=== PATIENT | male | born 1955 | race African-American/Black ===

== ENCOUNTER 2018-09-19 07:22 | Inpatient (IN) | payer OTHER ==
--- NOTE | 2018-08-20 21:51 | Pre-Procedure Note/Attestation ---
Pre-Procedure Note/Attestation Complete Prior to Procedure Planned Procedure: left Procedure Narrative: Open biopsy of lef tumor on jaw and radiofrequency ablation of tumor left jaw. 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 Attestation I attest that I discussed the nature of the procedure; its benefits; risks and complications; and alternatives (and the risks and benefits of such alternatives ), prior to the procedure, with the patient (or the patient's legal airline security representative). I attest that, if there was a reasonable possibility of needing a blood transfusion, the patient (or the patient's legal airline security representative) was given the [facility] standardized written summary, pursuant to the [place] Blood Safety Act ([place] Health and Safety Code # 1645, as amended). I attest that I re-evaluated the patient just prior to the surgery and that there has been no change in the patient's H&P,as attached and done by his PMD and will be cosigned by me. Elmo Gray MD Aug 20, 2018 21:51
--- NOTE | 2018-08-20 21:58 | Brief Operative Note ---
Immediate Post Operative Note Operative Note Chief Complaint: Recurrent left parotid tumor S/P multiple surgeries elsewhere. 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 Procedure: Left face/jaw tumor open biopsy and radiofrequency ablation. Post-op Diagnosis: same as pre-op Surgeon: Elmo Gray MD Traffic Checker: none Additional Surgeons: none Anesthesia: MAC Specimen: yes - Sent to [facility] for special cancer DNA testing. Fluids: D5LR Estimated Blood Loss: minimal Drains: none Packing: none Implant(s) used?: No Elmo Gray MD Aug 20, 2018 21:58
--- NOTE | 2018-08-20 22:02 | Discharge Instructions ---
Discharge Instructions Discharge Instructions Follow up with: Dr. Gray next week Diet: regular Resume Normal Activity?: No Activity: light activity Pneumonia Vaccine: pt refused vaccine Influenza Vaccine (Feb to Jul): pt refused vaccine Follow Up Orders pt has printed instructions re post op care which we reviewed at his pre op appt last week and were given to him. Return to Work/School on: Sep 04, 2018 For Congestive Heart Failure Reminder Report to your physician any weight gain of 5 pounds or more in one week. Elmo Gray MD Aug 20, 2018 22:02
--- NOTE | 2018-08-20 22:16 | History & Physical ---
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 Also has had XRT in the past, which did not work. Now on face and to base of skull. Bx to see if a CA and would benefit from Chemotherapy. Allergies: Coded Allergies: No Known Allergies (Unverified , 08/20/18) Medication History Scheduled PRN Hydrocodone Bit/Acetaminophen 5-325* ([place] 5-325*), 1 TAB ORAL Q6HR PRN, ( Reported) Miscellaneous Medications Cephalexin* (Keflex*), 500 MG ORAL, (Reported) Patient History History Provided By: Patient Healthcare decision maker patient himself Resuscitation status Full code Advanced Directive on File Patient History Narrative as above for face. Also; Cardiomegaly, Haque's aplsy Review of Systems Review of Symptoms General ROS: no weight loss or fever Psychological ROS: no depression or mood changes, no memory loss Ophthalmic ROS: no visual changes or eye irritation ENT ROS: no nasal congestion, hearing loss, dizziness. +LEFT FACIAL PARALYSIS, TUMOR ON LEFT FACE AND BASE OF SKULL ON LEFT. Allergy and Immunology ROS: no allergic symptoms or urticaria Hematological and Lymphatic ROS: no swollen glands, unusual bleeding or bruising Endocrine ROS: no polyuria, polydipsia, weight changes, temperature intolerance Respiratory ROS: no cough, shortness of breath, or wheezing Cardiovascular ROS: Cardiomegaly Gastrointestinal ROS: denies abdominal pain, bright red blood in stool. Musculoskeletal ROS: no myalgias or arthralgias Neurological ROS: no TIA or stroke symptoms Dermatological ROS: no new or changing skin lesions, rashes or pruritis Physical Exam Physical Exam General appearance: alert, cooperative, no distress, appears stated age Head: Normocephalic, without obvious abnormality, atraumatic Eyes: conjunctivae/corneas clear. PERRL, EOM's intact. Fundi benign Throat: Lips, mucosa, and tongue normal. Teeth and gums normal Neck: supple, symmetrical, trachea midline, no adenopathy, thyroid: not enlarged, symmetric, no tenderness/mass/nodules, no carotid bruit and no JVD Lungs: clear to auscultation bilaterally Heart: regular rate and rhythm, S1, S2 normal, no murmur, click, rub or gallop Abdomen: soft, non-tender. Bowel sounds normal. No masses, no organomegaly Extremities: extremities normal, atraumatic, no cyanosis or edema Pulses: 2+ and symmetric Skin: Skin color, texture, turgor normal. No rashes or lesions Neurologic: Grossly normal STABLE NA see PMD records sent including CBC< SMA 6, EXG, CXR and medical clearance. Height (Feet): 5 Height (Inches): 11 Weight (Pounds): 204 Medications Spironlactome, Losartan, Potassium Objective Narrative Left facial tumor and facial paralysisn Assessment/Plan Status: stable [facility] Hospital declaration INPATIENT level of care is warranted for this patient because patient is a 89 year old with who presents with suspicion of . I have a high level of concern because . Patient is at high risk for . Plan of care/treatment include . Patient care is expected to be greater than 2 midnights. OBSERVATION level of care is warranted for this patient. Patient is a 89 year old with who presents with . Patient will be admitted for 1 midnight, but if additional night(s) is/are necessary, patient will be converted to inpatient status for the entire hospitalization Disposition: Once the patient is stable to leave the hospital, I anticipate the patient will likely be discharged to the following environment: Estimated discharge date: I spent 70 minutes on this patient's case, and minutes was dedicated to counseling and/or care coordination. MIPS (Merit-based Incentive Payment System) Applicable CPT: 92558, 46167 CHECK ALL THAT ARE MET: Measure #5 (CHF): All ages. Prescribe CONSTANTINE/ARB upon discharge for patients with left ventricular systolic dysfunction. If not, the reason is clearly documented in the medical chart. Measure #8 (CHF): All ages. Prescribe a beta kulwant upon discharge for patients with left ventricular systolic dysfunction. If not, the reason is clearly documented in the medical chart. Measure #47 Advance care plan or surrogate decision maker documented in the medical record. Measure #130 The provider has documented, updated, or reviewed the patients current medication list and has documented it in the patients note. Measure #374 (All): Send report to referring provider. Measure #407(Sepsis due to MSSA bacteremia): Age 18+ Patient treated with a beta-lactam antibiotic (Nafcillin, Oxacillin or Cefazolin) as definitive therapy. MEDICAL COMPLEXITY High complexity medical decision making (need 2/3 categories) Problem - need 4 points Acute/new problem with new plan for workup (4 points, 1 max) Acute/new problem without additional workup (3 points, 1 max) Unstable chronic problem actively being managed (2 point each, 2 max) Stable chronic problem actively being managed (1 point each, 2 max) Self-limited/transient process (constipation, muscle ache, etc) (1 point each , 2 max) Data - need 4 points Reviewed labs/imaging studies (1 points, 2 max) Independent review of imaging (EKG, xrays, etc) (2 points, 2 max) Discussed case with consult/other MD/RN (2 points, 2 max) High Risk - qualify if have one of the following: Severe exacerbation of acute problem, acute mental status change, IV narcotics , monitoring drug levels (vancomycin, INR, tacrolimus etc) Elmo Gray MD Aug 20, 2018 22:16
--- NOTE | 2018-09-18 19:48 | History & Physical ---
History and Physical History & Physicial [facility] History and Physical Patient Name: Filiberto Rodriguez Unit Number: [id number] Date of : 1955 Patient Status: Pre-registered Surgical Day Care Attending Doctor: Elmo Gray MD HPI History of Present Illness General Date patient seen: Aug 09, 2018 Time patient seen: 11:15 Reason for Hospitalization: out[t surgery for open bx fo left face/jaw tumor Present Illness HPI Nuerous left facial surgeries elsewhere for pleomophic adenoma which has recurred many times and has had a reanimation surgery as well, which did not work well. Also has had XRT in the past, which did not work. Now on face and to base of skull. Bx to see if a CA and would benefit from Chemotherapy. Allergies: Coded Allergies: No Known Allergies (Unverified , 08/20/18) Medication History Scheduled PRN Hydrocodone Bit/Acetaminophen 5-325* ([place] 5-325*), 1 TAB ORAL Q6HR PRN, ( Reported) Miscellaneous Medications Cephalexin* (Keflex*), 500 MG ORAL, (Reported) Patient History History Provided By: Patient Healthcare decision maker patient himself Resuscitation status Full code Advanced Directive on File Patient History Narrative as above for face. Also; Cardiomegaly, Haque's aplsy Review of Systems Review of Systems Review of Symptoms General ROS: no weight loss or fever Psychological ROS: no depression or mood changes, no memory loss Ophthalmic ROS: no visual changes or eye irritation ENT ROS: no nasal congestion, hearing loss, dizziness. +LEFT FACIAL PARALYSIS, TUMOR ON LEFT FACE AND BASE OF SKULL ON LEFT. Allergy and Immunology ROS: no allergic symptoms or urticaria Hematological and Lymphatic ROS: no swollen glands, unusual bleeding or bruising Endocrine ROS: no polyuria, polydipsia, weight changes, temperature intolerance Respiratory ROS: no cough, shortness of breath, or wheezing Cardiovascular ROS: Cardiomegaly Gastrointestinal ROS: denies abdominal pain, bright red blood in stool. Musculoskeletal ROS: no myalgias or arthralgias Neurological ROS: no TIA or stroke symptoms Dermatological ROS: no new or changing skin lesions, rashes or pruritis Physical Exam Physical Exam Physical Exam General appearance: alert, cooperative, no distress, appears stated age Head: Normocephalic, without obvious abnormality, atraumatic Eyes: conjunctivae/corneas clear. PERRL, EOM's intact. Fundi benign Throat: Lips, mucosa, and tongue normal. Teeth and gums normal Neck: supple, symmetrical, trachea midline, no adenopathy, thyroid: not enlarged, symmetric, no tenderness/mass/nodules, no carotid bruit and no JVD Lungs: clear to auscultation bilaterally Heart: regular rate and rhythm, S1, S2 normal, no murmur, click, rub or gallop Abdomen: soft, non-tender. Bowel sounds normal. No masses, no organomegaly Extremities: extremities normal, atraumatic, no cyanosis or edema Pulses: 2+ and symmetric Skin: Skin color, texture, turgor normal. No rashes or lesions Neurologic: Grossly normal STABLE NA see PMD records sent including CBC< SMA 6, EXG, CXR and medical clearance. Height (Feet): 5 Height (Inches): 11 Weight (Pounds): 204 Medications Spironlactome, Losartan, Potassium Objective Narrative Left facial tumor and facial paralysisn Assessment/Plan Assessment/Plan Status: stable [facility] Hospital declaration INPATIENT level of care is warranted for this patient because patient is a 63 year old who presents with suspicion of cancer parotid gland. I have a high level of concern because of recurrence. Plan of care/treatment include open biopsy. Patient care is expected to be an outpt. Disposition: Once the patient is stable to leave the hospital, I anticipate the patient will likely be discharged to home with a friend of family member. Estimated discharge date: I spent 70 minutes on this patient's case, and 50 minutes was dedicated to counseling and/or care coordination. MIPS (Merit-based Incentive Payment System) Applicable CPT: 47518, 08033 CHECK ALL THAT ARE MET: Measure #8 (CHF): All ages. Prescribe a beta kulwant upon discharge for patients with left ventricular systolic dysfunction. If not, the reason is clearly documented in the medical chart. Measure #130 The provider has documented, updated, or reviewed the patients current medication list and has documented it in the patients note. MEDICAL COMPLEXITY High complexity medical decision making (need 2/3 categories) Problem - need 4 points Acute/new problem with new plan for workup (4 points, 1 max) Acute/new problem without additional workup (3 points, 1 max) Unstable chronic problem actively being managed (2 point each, 2 max) Stable chronic problem actively being managed (1 point each, 2 max) Self-limited/transient process (constipation, muscle ache, etc) (1 point each , 2 max) Data - need 4 points Reviewed labs/imaging studies (1 points, 2 max) Independent review of imaging (EKG, xrays, etc) (2 points, 2 max) Discussed case with consult/other MD/RN (2 points, 2 max) High Risk - qualify if have one of the following: Severe exacerbation of acute problem, acute mental status change, IV narcotics , monitoring drug levels (vancomycin, INR, tacrolimus etc) Elmo Gray MD Aug 20, 2018 22:16 Elmo Gray MD September 18, 2018 19:48
[2018-09-19] VITALS (15 sets, daily range): BP systolic 102–141; BP diastolic 61–97
[~2018-09-19] VITALS: Ht 182.9 cm; Wt 88.5 kg
[~2018-09-19 07:22] MED LIST: AUGMENTIN 875-1 EAC1 ORAL; CARVEDILOL6.25 MG ORAL; CEPHALEXIN500 MG ORAL; LOSARTAN POTASS25 MG ORAL; NORCO 5-325 TA1 EACH ORAL
--- NOTE | 2018-09-19 07:56 | Anethesia Preoperative Eval ---
Anesthesia Pre-op PMH/ROS General Date of Evaluation: September 19, 2018 Anesthesiologist: Chris ASA Score: ASA 3 Mallampati Score Class I : Soft palate, uvula, fauces, pillars visible Class II: Soft palate, uvula, fauces visible Class III: Soft palate, base of uvula visible Class IV: Only hard plate visible Mallampati Classification: Class III Surgeon: Marina Diagnosis: Left parotid tumor Surgical Procedure: Left parotid gland tumor biopsy and radiofrequency ablation Anesthesia History: none Family History: no anesthesia problems Allergies: Coded Allergies: No Known Allergies (Unverified , 08/20/18) Medications: see eMAR Patient NPO?: Yes NPO Date: September 18, 2018 NPO Time: 22:00 Past Medical History Cardiovascular: Reports: HTN, other - CHF-EF 15-20%, refusing AICD, nonischemic cardiomyopathy; Denies: CAD, MT, valve dz, arrhythmia Pulmonary: Denies: asthma, COPD, AMARJIT, other Gastrointestinal/Genitourinary: Reports: CRI; Denies: GERD, ESRD, other Neurologic/Psychiatric: Reports: depression/anxiety; Denies: dementia, CVA, TIA, other Endocrine: Denies: DM, hypothyroidism, steroids, other HEENT: Reports: other - parotid tumor; Denies: cataract (L), cataract (R), glaucoma, TORRES MARTINEZ (L), TORRES MARTINEZ (R) Hematology/Immune: Denies: anemia, DVT, bleeding disorder, other Musculoskeletal/Integumentary: Denies: OA, RA, DJD, DDD, edema, other Other: obesity PSxH Narrative: Left parotid sx X 9 Anesthesia Pre-op Phys. Exam Physician Exam see chart Constitutional: NAD, other - left facial paralysis Cardiovascular: RRR Respiratory: CTA Airway Exam Mallampati Score: Class III - deviated palate secondary to large parotid tumor MO: limited ROM: limited Teeth: intact Anesthesia Pre-op A/P Labs see chart Studies Pre-op Studies: EKG - nsr with LAD, PVCs, delayed intraventricular conduction, echo - EF 15-20%, mod LVE, mild AI, mild-mod MR, mild TR, mod LAE, mild MONSERRAT Risk Assessment & Plan Assessment: ASA III critically ill patient with EF of 15-20 % and nonischemic cardiomyopathy. Refusing AICD. Airway Mallampati III with deviated palate and posterior oropharynx secondary to large parotid tumor that extends into the skull. Surgery changed to biopsy of parotid gland tumor with radiofrequency ablation under local anesthesia with anesthesiologist on standby. Plan: GA Status Change Before Surgery: No Pre-Antibiotics Drug: Ancef 2g Given Within 1 Hr of Incision: Yes Lulú Hernandez MD September 19, 2018 07:56
--- NOTE | 2018-09-19 07:57 | Brief Operative Note ---
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 Procedure: Left face/jaw tumor open biopsy and radiofrequency ablation. Post-op Diagnosis: same as pre-op Surgeon: Elmo Gray Or Nurse Manager: none Additional Surgeons: none Anesthesiologist: Chris Anesthesia: general Specimen: yes Complications: none Condition: stable Fluids: D5LR Estimated Blood Loss: volume - 150 cc Drains: antwan Packing: none Implant(s) used?: No Elmo Gray MD September 19, 2018 07:57
[2018-09-19] MEDS ORDERED: LR 1000ml 1,000 ML IVLG SCH (08:21)
[2018-09-19] MEDS ORDERED: LORazepam Inj 2mg/ml 1ml IV PRN ×2 (08:30→12:30)
[2018-09-19] MEDS ORDERED: DiphenhydrAMINE 50mg/ml Inj IVP PRN (08:30)
[2018-09-19] MEDS ORDERED: fentaNYL 100 mcg/2 mL IV PRN (08:30)
[2018-09-19] MEDS ORDERED: Hydromorphone 0.5mg/0.5ml inj IVP PRN (08:30)
[2018-09-19] MEDS ORDERED: Metoclopramide 10mg/2ml Inj IVP PRN (08:30)
[2018-09-19] MEDS ORDERED: Midazolam 2mg/2ml Inj IVP PRN (08:30)
[2018-09-19] MEDS ORDERED: EPINEPHrine 1mg/1ml Amp ONE (09:16)
[2018-09-19] MEDS ORDERED: Lidocaine 1% 10mg/ml/Epi 0.005mg/ml 30ml vial INJ ONE (09:16)
[2018-09-19] MEDS ORDERED: Bupivacaine w/Epi 0.5% 30ml Vial INJ ONE (09:16)
[2018-09-19] MEDS ORDERED: Bacitracin Oint 15gm Tube TOPIC ONE (09:16)
[2018-09-19] MEDS ORDERED: LR 1000ml ONE (09:21)
[2018-09-19] MEDS ORDERED: Lidocaine 1% MPF 10mg/ml 5ml ONE (09:21)
--- NOTE | 2018-09-19 09:23 | Pre-Procedure Note/Attestation ---
Pre-Procedure Note/Attestation Complete Prior to Procedure Planned Procedure: left Procedure Narrative: Open biopsy of left jaw tumor with radiofrequency ablation. 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 Attestation I attest that I discussed the nature of the procedure; its benefits; risks and complications; and alternatives (and the risks and benefits of such alternatives ), prior to the procedure, with the patient (or the patient's legal safety representative). I attest that, if there was a reasonable possibility of needing a blood transfusion, the patient (or the patient's legal safety representative) was given the [facility] standardized written summary, pursuant to the [place] Blood Safety Act ([place] Health and Safety Code # 1645, as amended). I attest that I re-evaluated the patient just prior to the surgery and that there has been no change in the patient's H&P. Elmo Gray MD September 19, 2018 09:23
--- NOTE | 2018-09-19 09:26 | Discharge Instructions ---
Discharge Instructions Discharge Instructions Follow up with: Dr. Gray's office 09/21/18 10 AM Diet: regular Resume Normal Activity?: No Activity: light activity Pneumonia Vaccine: pt refused vaccine Influenza Vaccine (Feb to Jul): pt refused vaccine Return to Work/School on: September 26, 2018 For Surgical Patients Dressing Care: keep dry and clean September shower: Yes For Congestive Heart Failure Reminder Report to your physician any weight gain of 5 pounds or more in one week. Elmo Gray MD September 19, 2018 09:26
--- NOTE | 2018-09-19 10:54 | Immediate Post-Op Evaluation ---
Immediate Post-Op Evalulation Immediate Post-Op Evalulation Procedure: Biopsy left parotid gland tumor and radiofrequency ablation Date of Evaluation: September 19, 2018 Time of Evaluation: 10:55 IV Fluids: 200 Blood Products: 0 Estimated Blood Loss: 150 Urinary Output: 0 Blood Pressure Systolic: 141 Blood Pressure Diastolic: 97 Pulse Rate: 69 Respiratory Rate: 16 O2 Sat by Pulse Oximetry: 96 Temperature (Fahrenheit): 97 Pain Score (1-10): 0 Nausea: No Vomiting: No Complications 0 Patient Status: awake, reacts, patent, none Hydration Status: adequate Drug: Ancef 2g Given Within 1 Hr of Incision: Yes Lulú Hernandez MD September 19, 2018 10:54
[2018-09-19] MEDS ORDERED: Morphine Sulfate 2mg/ml Inj(IV/IM USE ONLY) IVP PRN (12:30)
[2018-09-19] MEDS ORDERED: Zolpidem 5mg tab ORAL PRN (12:30)
[2018-09-19] MEDS ORDERED: Miralax 17gm pkt ORAL PRN (12:30)
--- NOTE | 2018-09-19 12:40 | History and Physical ---
History of Present Illness General Date patient seen: September 19, 2018 Present Illness HPI 63 year old male with hx of HTN, Cardiomyopathy, head and neck tumor since 1986 with total of 9 surgeries, admitted after biopsy of parotid mass. Allergies: Coded Allergies: No Known Allergies (Unverified , 08/20/18) Medication History Scheduled Amoxicillin/Potassium Clav 875-125* (Augmentin 875-125 Tablet*), 1 TAB ORAL TWICE A DAY, (Reported) Carvedilol* (Carvedilol*), 6.25 MG ORAL EVERY 12 HOURS, (Reported) Losartan Potassium* (Losartan Potassium*), 25 MG ORAL DAILY, (Reported) Scheduled PRN Hydrocodone Bit/Acetaminophen 5-325* ([place] 5-325*), 1 TAB ORAL Q6HR PRN, ( Reported) Miscellaneous Medications Cephalexin* (Keflex*), 500 MG ORAL, (Reported) Patient History Healthcare decision maker Resuscitation status Advanced Directive on File Past Medical/Surgical History Past Medical/Surgical History: (1) History of hypertension (2) Chronic systolic (congestive) heart failure Review of Systems All Other Systems: negative except mentioned in HPI Physical Exam General Appearance: WD/WN Lines, tubes and drains: peripheral, central line HEENT: normocephalic, atraumatic Neck: non-tender, normal alignment Respiratory/Chest: chest wall non-tender, lungs clear Breasts: no masses Cardiovascular/Chest: normal rate Abdomen: normal bowel sounds Genitourinary/Rectal: normal genital exam Extremities: normal range of motion Last 24 Hour Vital Signs Date Time Temp Pulse Resp B/P (MAP) Pulse Ox O2 Delivery O2 Flow Rate FiO2 09/19/18 11:55 97.2 68 18 125/86 96 Room Air 09/19/18 11:40 71 19 122/84 97 Room Air 09/19/18 11:30 68 14 116/85 96 Room Air 09/19/18 11:20 68 15 124/76 95 Room Air 09/19/18 11:10 71 19 133/91 94 Room Air 09/19/18 11:00 69 17 141/82 95 Room Air 09/19/18 10:55 71 18 126/92 95 Room Air 09/19/18 10:54 69 16 96 09/19/18 10:50 97.0 69 16 141/97 96 Room Air 09/19/18 08:09 Room Air 09/19/18 08:02 97.3 67 18 138/86 98 Room Air Height (Feet): 5 Height (Inches): 11.00 Weight (Pounds): 200 Medications Current Medications Medications (Trade) Dose Ordered Sig/Racquel Route PRN Reason Start Time Stop Time Status Last Admin Dose Admin Acetaminophen (Tylenol) 650 mg Q4H PRN ORAL Mild Pain (Pain Scale 1-3) 09/19/18 08:30 09/19/18 14:00 Acetaminophen (Tylenol) 650 mg Q4H PRN ORAL fever 09/19/18 12:30 10/19/18 12:29 UNV Carvedilol (Coreg) 6.25 mg EVERY 12 HOURS ORAL 09/19/18 21:00 10/19/18 20:59 UNV Dextrose (Dextrose 50%) STAT PRN IV Hypoglycemia 09/19/18 12:30 10/19/18 12:29 UNV Diphenhydramine HCl (Benadryl) 25 mg Q15M PRN IVP Itching 09/19/18 08:30 09/19/18 14:00 Fentanyl Citrate (Sublimaze 100 mcg/2 mL) 25 mcg Q10M PRN IV Moderate Pain (Pain Scale 4-6) 09/19/18 08:30 09/19/18 14:00 Hydralazine HCl (Apresoline) 5 mg Q30M PRN IV SBP>160 OR___/DBP>90 OR___ 09/19/18 08:30 09/19/18 14:00 Hydromorphone HCl (Dilaudid) 0.5 mg Q15M PRN IVP Severe Pain (Pain Scale 7-10) 09/19/18 08:30 09/19/18 14:00 09/19/18 11:06 Lactated Ringer's 1,000 ml @ 10 mls/hr Q24H IVLG 09/19/18 08:21 09/19/18 14:00 Lorazepam (Ativan 2mg/ml 1ml) 0.5 mg Q4H PRN IV For Anxiety 09/19/18 12:30 09/26/18 12:29 UNV Lorazepam (Ativan 2mg/ml 1ml) 1 mg Q15M PRN IV For Anxiety 09/19/18 08:30 09/19/18 14:00 Losartan Potassium (Cozaar) 25 mg DAILY ORAL 09/19/18 12:30 10/19/18 12:29 UNV Metoclopramide HCl (Reglan) 10 mg Q1H PRN IVP Nausea & Vomiting 09/19/18 08:30 09/19/18 14:00 Midazolam HCl (Versed 2mg/2ml vial) 1 mg Q15M PRN IVP For Anxiety 09/19/18 08:30 09/19/18 14:00 Morphine Sulfate (Morphine Sulfate) 1 mg EVERY 4 HOURS PRN IVP For Pain 09/19/18 12:30 09/26/18 12:29 UNV Ondansetron HCl (Zofran) 4 mg Q1H PRN IVP Nausea & Vomiting 09/19/18 08:30 09/19/18 14:00 Ondansetron HCl (Zofran) 4 mg Q6H PRN IVP Nausea & Vomiting 09/19/18 12:30 10/19/18 12:29 UNV Polyethylene Glycol (Miralax) 17 gm HSPRN PRN ORAL Constipation 09/19/18 12:30 10/19/18 12:29 UNV Zolpidem Tartrate (Ambien) 5 mg HSPRN PRN ORAL Insomnia 09/19/18 12:30 09/26/18 12:29 UNV Assessment/Plan Problem List: (1) Parotid mass ICD Codes: K11.9 - Disease of salivary gland, unspecified SNOMED: 300328325 (2) Chronic systolic (congestive) heart failure ICD Codes: I50.22 - Chronic systolic (congestive) heart failure SNOMED: 90476363, 411747028 (3) History of hypertension ICD Codes: Z86.79 - Personal history of other diseases of the circulatory system SNOMED: 080867687 Assessment/Plan: symptomatic treatment pain management monitor BP resume cardiac meds dvt prophylaxis Yary Ramsay MD September 19, 2018 12:40
--- NOTE | 2018-09-19 13:00 | NUR ---
NURSE NOTES: Received report from eric RN, pt a/a/o x4 laying in bed with no signs of distress or other issues at this time. surgical dressing dry and intact. IV on the right hand gauge#20 running LR's. RN will change fluids as indicated by . pt's at bedside. RN will contact Dr. Ramsay for admission orders. call light within reach. bed in lowest position. side rales up x2. I will f/u as needed.
[2018-09-19] MEDS ORDERED: Losartan 25mg tab ORAL SCH (14:00)
--- NOTE | 2018-09-19 19:29 | NUR ---
HAND-OFF: Report given to Ashley DALLAS, pt in stable condition.
--- NOTE | 2018-09-19 19:30 | NUR ---
NURSE NOTES: Received report & pt from BURT Espinoza. Pt lying in bed, a&ox4, in room air. No s/s of acute distress & no c/o pain. Surgical dressing C/D/I. IV site intact & S/L'd. Bed in lowest position, call light within reach. Will continue to monitor.
[2018-09-19] MEDS ORDERED: Carvedilol 6.25mg Tab ORAL SCH (21:00)
[2018-09-20] VITALS: BP 106/59
[2018-09-20 04:00] VITALS: BP 111/72
[2018-09-20 06:22] LABS: EOSINOPHILS % (AUTO) 3.7 % (0.0-3.0); HEMATOCRIT 40.6 % (42.0-52.0); HEMOGLOBIN 13.5 G/DL (14.2-18.0); LYMPHOCYTES % (AUTO) 24.2 % (20.0-45.0); MEAN CORPUSCULAR VOLUME 87 FL (80-99); MONOCYTES % (AUTO) 10.5 % (1.0-10.0); NEUTROPHILS % (AUTO) 59.6 % (45.0-75.0); PLATELET COUNT 182 K/UL (150-450); RED BLOOD COUNT 4.66 M/UL (4.70-6.10); RED CELL DISTRIBUTION WIDTH 12.8 % (11.6-14.8); WHITE BLOOD COUNT 5.1 K/UL (4.8-10.8)
[2018-09-20 06:38] LABS: ALANINE AMINOTRANSFERASE 17 U/L (12-78); ALBUMIN 3.3 G/DL (3.4-5.0); ALBUMIN/GLOBULIN RATIO 0.8 (1.0-2.7); ALKALINE PHOSPHATASE 77 U/L (46-116); ANION GAP 5 mmol/L (5-15); ASPARTATE AMINO TRANSFERASE 14 U/L (15-37); BILIRUBIN,TOTAL 0.7 MG/DL (0.2-1.0); BLOOD UREA NITROGEN 11 mg/dL (7-18); CALCIUM 8.9 MG/DL (8.5-10.1); CARBON DIOXIDE 31 MMOL/L (21-32); CHLORIDE 103 MMOL/L (98-107); CHOLESTEROL 155 MG/DL (< 200); CREATININE 1.1 MG/DL (0.55-1.30); HDL CHOLESTEROL 56 MG/DL (40-60); POTASSIUM 4.5 MMOL/L (3.5-5.1); SODIUM 139 MMOL/L (136-145); TRIGLYCERIDES 49 MG/DL (30-150)
--- NOTE | 2018-09-20 07:30 | NUR ---
HAND-OFF: Report given to BURT Lozoya. Pt in stable condition.
[2018-09-20 08:00] VITALS: BP 100/49
--- NOTE | 2018-09-20 08:03 | NUR ---
NURSE NOTES: Pt awake bandage to face clean and intact. Able to verbalize known needs Barb pain at this time. Current plan of care will e followed. Spouse is at bedside
--- NOTE | 2018-09-20 08:08 | 48 Hour Post Anesthesia Eval ---
Post Anesthesia Evaluation Procedure: Biopsy left parotid gland tumor and radiofrequency ablation Date of Evaluation: September 20, 2018 Airway: patent Nausea: No Vomiting: No Pain Intensity: 0 Hydration Status: adequate Cardiopulmonary Status: at baseline Mental Status/LOC: patient returned to baseline Post-Anesthesia Complications: 0 Follow-up care needed: ready to discharge Lulú Hernandez MD September 20, 2018 08:08
--- NOTE | 2018-09-20 09:04 | NUR ---
MANAGER SOFTWARE DEVELOPMENTPIPE FITTER GAS PIPE 63 Y/O MALE [place] [facility] [place] CC:LEFT FACIAL TERRITORY PAROTID TUMOR SI:LEFT FACIAL TERRITORY PAROTID TUMOR VS: BP 109/59, P 71, T 97.2, RR 18, SpO2 95 RBC 4.66, H&H 13.5/40.6 IS:EXCISION OF LEFT PAROTID TUMOR COREG 6.25mg MORPHINE SULFATE 1mg IVP COZAAR 25mg ADMITTED TO MED/SURG DCP: RETURN HOME
--- NOTE | 2018-09-20 10:15 | NUR ---
NURSE NOTES: Dr Ramsay paged in order to verify he wanted to add parameters to blood pressure mediation. Pt has dx of CHF bp 100/49 . Awaiting return call. Pt informed that bp is low , and that singer songwriter will phone the DrTobias in regards to parameters . Risk of diziziness and decreased blood pressure explained
[2018-09-20 10:32] VITALS: BP 100/49
--- NOTE | 2018-09-20 11:01 | NUR ---
*-* INSURANCE *-* ALL CLINICALS AND REVIEWS HAVE BEEN FAXED TO: [facility] P- [phone] F- [phone]...REVIEW/CLINICAL
--- NOTE | 2018-09-20 12:38 | Pulmonology Progress Note ---
Assessment/Plan Problems: (1) Parotid mass (2) Chronic systolic (congestive) heart failure (3) History of hypertension Assessment/Plan awaiting biopsy results symptomatic treatment watch BP dc planning as per ENT, dr. Gray/ Subjective ROS Limited/Unobtainable: No Constitutional: Reports: no symptoms Allergies: Coded Allergies: No Known Allergies (Unverified , 08/20/18) Objective Last 24 Hour Vital Signs Date Time Temp Pulse Resp B/P (MAP) Pulse Ox O2 Delivery O2 Flow Rate FiO2 09/20/18 10:32 52 100/49 09/20/18 09:00 Room Air 09/20/18 08:00 97.7 52 20 100/49 (66) 96 09/20/18 04:00 98.1 73 17 111/72 (85) 95 09/20/18 00:00 97.9 71 18 106/59 (75) 96 09/19/18 21:00 Room Air 09/19/18 20:22 74 102/61 09/19/18 20:00 98.2 74 18 102/61 (75) 96 09/19/18 19:10 97.2 09/19/18 16:51 97.2 09/19/18 16:00 98.0 70 19 112/72 (85) 97 09/19/18 14:35 112/74 09/19/18 14:00 97.4 70 20 116/73 (87) 95 09/19/18 13:52 Room Air 09/19/18 13:30 97.4 70 20 112/73 (86) 96 09/19/18 13:15 97.5 74 18 112/74 (87) 98 09/19/18 13:00 97.4 70 18 111/78 (89) 97 Intake and Output 09/19/18 09/20/18 19:00 07:00 Intake Total 1210 ml 820 ml Output Total 150 ml 1950 ml Balance 1060 ml -1130 ml Intake Oral 360 ml 820 ml IV Total 850 ml Output Urine Total 1950 ml Estimated Blood Loss 150 ml # Voids 3 5 General Appearance: WD/WN HEENT: normocephalic, atraumatic Respiratory/Chest: chest wall non-tender, no respiratory distress Cardiovascular: normal rate, regularly irregular Abdomen: soft, non tender, non distended Genitourinary: normal external genitalia Extremities: no clubbing Laboratory Tests 09/20/18 05:35: White Blood Count 5.1, Red Blood Count 4.66L, Hemoglobin 13.5L, Hematocrit 40.6L , Mean Corpuscular Volume 87, Mean Corpuscular Hemoglobin 29.0, Mean Corpuscular Hemoglobin Concent 33.3, Red Cell Distribution Width 12.8, Platelet Count 182, Mean Platelet Volume 10.2H, Neutrophils (%) (Auto) 59.6, Lymphocytes (%) (Auto) 24.2, Monocytes (%) (Auto) 10.5H, Eosinophils (%) (Auto) 3.7H, Basophils (%) (Auto) 2.0, Sodium Level 139, Potassium Level 4.5, Chloride Level 103, Carbon Dioxide Level 31, Anion Gap 5, Blood Urea Nitrogen 11, Creatinine 1.1, Estimat Glomerular Filtration Rate > 60, Glucose Level 105, Calcium Level 8.9, Total Bilirubin 0.7, Aspartate Amino Transf (AST/SGOT) 14L, Alanine Aminotransferase (ALT/SGPT) 17, Alkaline Phosphatase 77, Total Protein 7.3, Albumin 3.3L, Globulin 4.0, Albumin/Globulin Ratio 0.8L, Triglycerides Level 49 , Cholesterol Level 155, LDL Cholesterol 91, HDL Cholesterol 56, Cholesterol/ HDL Ratio 2.8L, Thyroid Stimulating Hormone (TSH) 1.314 Current Medications Medications (Trade) Dose Ordered Sig/Racquel Route PRN Reason Start Time Stop Time Status Last Admin Dose Admin Acetaminophen (Tylenol) 650 mg Q4H PRN ORAL fever 09/19/18 12:30 10/19/18 12:29 09/19/18 18:40 Carvedilol (Coreg) 6.25 mg EVERY 12 HOURS ORAL 09/20/18 21:00 10/19/18 20:59 Dextrose (Dextrose 50%) 25 ml Q30M PRN IV Hypoglycemia 09/19/18 12:30 10/19/18 12:29 Dextrose (Dextrose 50%) 50 ml Q30M PRN IV Hypoglycemia 09/19/18 12:45 10/19/18 12:44 Lorazepam (Ativan 2mg/ml 1ml) 0.5 mg Q4H PRN IV For Anxiety 09/19/18 12:30 09/26/18 12:29 Losartan Potassium (Cozaar) 25 mg DAILY ORAL 09/21/18 09:00 10/19/18 13:59 Morphine Sulfate (Morphine Sulfate) 1 mg Q4H PRN IVP For Pain 09/19/18 12:30 09/26/18 12:29 09/19/18 16:21 Ondansetron HCl (Zofran) 4 mg Q6H PRN IVP Nausea & Vomiting 09/19/18 12:30 10/19/18 12:29 Polyethylene Glycol (Miralax) 17 gm HSPRN PRN ORAL Constipation 09/19/18 12:30 10/19/18 12:29 Zolpidem Tartrate (Ambien) 5 mg HSPRN PRN ORAL Insomnia 09/19/18 12:30 09/26/18 12:29 Yary Ramsay MD September 20, 2018 12:38
--- NOTE | 2018-09-20 13:19 | General Progress Note ---
Assessment/Plan Problem List: (1) History of hypertension ICD Codes: Z86.79 - Personal history of other diseases of the circulatory system SNOMED: 196094318 (2) Chronic systolic (congestive) heart failure ICD Codes: I50.22 - Chronic systolic (congestive) heart failure SNOMED: 19586484, 251894936 (3) Parotid mass ICD Codes: K11.9 - Disease of salivary gland, unspecified SNOMED: 895582279 Status: stable Assessment/Plan: 1. Drain removed 2. Bandaid placed 3. Pt to see me in my office tomorrow. 4. Thanks to Dr. Acevedo for seeing pt as Hand Mounter while he was in the hospital. Subjective Date patient seen: September 20, 2018 ROS Limited/Unobtainable: Yes Constitutional: Reports: no symptoms HEENT: Reports: other - No sig bleeding, only some dried blood on dressing Cardiovascular: Reports: no symptoms Respiratory: Reports: no symptoms Gastrointestinal/Abdominal: Reports: no symptoms Genitourinary: Reports: no symptoms Neurologic/Psychiatric: Reports: no symptoms Endocrine: Reports: no symptoms Allergies: Coded Allergies: No Known Allergies (Unverified , 08/20/18) Objective Last 24 Hour Vital Signs Date Time Temp Pulse Resp B/P (MAP) Pulse Ox O2 Delivery O2 Flow Rate FiO2 09/20/18 10:32 52 100/49 09/20/18 09:00 Room Air 09/20/18 08:00 97.7 52 20 100/49 (66) 96 09/20/18 04:00 98.1 73 17 111/72 (85) 95 09/20/18 00:00 97.9 71 18 106/59 (75) 96 09/19/18 21:00 Room Air 09/19/18 20:22 74 102/61 09/19/18 20:00 98.2 74 18 102/61 (75) 96 09/19/18 19:10 97.2 09/19/18 16:51 97.2 09/19/18 16:00 98.0 70 19 112/72 (85) 97 09/19/18 14:35 112/74 09/19/18 14:00 97.4 70 20 116/73 (87) 95 09/19/18 13:52 Room Air 09/19/18 13:30 97.4 70 20 112/73 (86) 96 Intake and Output 09/19/18 09/20/18 19:00 07:00 Intake Total 1210 ml 820 ml Output Total 150 ml 1950 ml Balance 1060 ml -1130 ml Intake Oral 360 ml 820 ml IV Total 850 ml Output Urine Total 1950 ml Estimated Blood Loss 150 ml # Voids 3 5 Laboratory Tests 09/20/18 05:35: White Blood Count 5.1, Red Blood Count 4.66L, Hemoglobin 13.5L, Hematocrit 40.6L , Mean Corpuscular Volume 87, Mean Corpuscular Hemoglobin 29.0, Mean Corpuscular Hemoglobin Concent 33.3, Red Cell Distribution Width 12.8, Platelet Count 182, Mean Platelet Volume 10.2H, Neutrophils (%) (Auto) 59.6, Lymphocytes (%) (Auto) 24.2, Monocytes (%) (Auto) 10.5H, Eosinophils (%) (Auto) 3.7H, Basophils (%) (Auto) 2.0, Sodium Level 139, Potassium Level 4.5, Chloride Level 103, Carbon Dioxide Level 31, Anion Gap 5, Blood Urea Nitrogen 11, Creatinine 1.1, Estimat Glomerular Filtration Rate > 60, Glucose Level 105, Calcium Level 8.9, Total Bilirubin 0.7, Aspartate Amino Transf (AST/SGOT) 14L, Alanine Aminotransferase (ALT/SGPT) 17, Alkaline Phosphatase 77, Total Protein 7.3, Albumin 3.3L, Globulin 4.0, Albumin/Globulin Ratio 0.8L, Triglycerides Level 49 , Cholesterol Level 155, LDL Cholesterol 91, HDL Cholesterol 56, Cholesterol/ HDL Ratio 2.8L, Thyroid Stimulating Hormone (TSH) 1.314 Height (Feet): 6 Height (Inches): 11.00 Weight (Pounds): 195 EENT: other - dressing with some dreid blood, once removed no drainage. Elmo Gray MD September 20, 2018 13:19
--- NOTE | 2018-09-20 14:03 | NUR ---
NURSE NOTES: Dr Gray here seen pt gave okay for discharge. Dr Ramsay phoned for home orders. Awaiting return call . Spouse is at bedside
--- NOTE | 2018-09-20 15:16 | NUR ---
NURSE NOTES: Pt discharged home. Pt to follow up with Dr Jonas isbell tomorrow, Per Discharge instructions given prior to surgery. Pt instructed not to shave until he has follow up appt. Pt also educated to follow up with primary physician in regards to blood pressure parameters. BP 100/49. Pt encouraged to purchase a blood pressure cuff at [facility] to monitor his blood pressure prior to taking medications. IV removed. Pt wearing belongings . Discharge packet given
[2018-09-20] MEDS ORDERED: Carvedilol 6.25mg Tab ORAL SCH (21:00)
--- NOTE | 2018-09-20 23:00 | Operative Note - Dictated ---
DATE OF OPERATION: 09/20/2018 SURGEON: Elmo Gray M.D. DIRECTOR NEWS: None. ANESTHESIOLOGIST: Dr. Perez. ANESTHESIA: IV sedation as well as 10 mL of 1% lidocaine with epinephrine over the course of the procedure. INDICATION FOR PROCEDURE: The patient is with recurrent pleomorphic adenoma. He has had 9 previous surgeries. This surgery is only for biopsy and a trial of radiofrequency wave for ablation of a node in the left face. PREOPERATIVE DIAGNOSIS: The patient is with recurrent pleomorphic adenoma. He has had 9 previous surgeries. This surgery is only for biopsy and a trial of radiofrequency wave for ablation of a node in the left face. POSTOPERATIVE DIAGNOSIS: The patient is with recurrent pleomorphic adenoma. He has had 9 previous surgeries. This surgery is only for biopsy and a trial of radiofrequency wave for ablation of a node in the left face. FINDINGS: The patient is with recurrent pleomorphic adenoma. He has had 9 previous surgeries. This surgery is only for biopsy and a trial of radiofrequency wave for ablation of a node in the left face. PROCEDURES: 1. Open biopsy of the left facial tumor. 2. Radiofrequency ablation of the left neck tumor. TECHNIQUE: The patient was prepped and draped in the usual manner. A time-out was performed. All agreed as to the procedure and equipment required. Initially, he is injected with 1% lidocaine with epinephrine around the operative site. I then proceeded to use a #15 blade and made an incision over the mass taking it down to the tumor. The capsule was opened and pieces of the tumor were taken out. There was bleeding at the lower right end of the tumor. This was packed with Surgicel and a drain was placed and then sewn shut with 4-0 Vicryl x3 deep and a running 5-0 Prolene horizontal mattress. Then, there was a smaller mass on the neck. A small incision was made because the skin was very thick. I then placed the radiofrequency wand, setting of 6 x 10 seconds times over 3 passes after coating with saline gel. It was then removed. One stitch where the opening was made was placed with a 5-0 Prolene. A pressure dressing was placed and it was decided to keep the patient overnight. He has a low ejection fraction of 15. It was a very vascular tumor and was bleeding. [place] it would be more prudent to keep him in the hospital to evaluate to see if there was any significant bleeding. I am dictating this note the next day. He had insignificant bleeding. Dressing was dry. Drain was removed. Band-Aid placed over and he is to see me tomorrow in my office. Sponge and needle count was correct. EBL: 150 mL. COUNTS: None. DRAINS: One Mahendra. Elmo Gray M.D. DR: RUBEN JOB#: [id number] CC:
[2018-09-21] MEDS ORDERED: Losartan 25mg tab ORAL SCH ×2 (09:00)
--- NOTE | 2018-09-21 09:56 | Discharge Summary ---
Discharge Summary Discharge Summary _ DATE OF ADMISSION: 09/19/2018 DATE OF DISCHARGE: 09/20/2018 DISCHARGED BY: Dr.Andrew Gray CONSULTANTS: Dr. Yary Ramsay BRIEF HOSPITAL COURSE: Patient is a 63-year-old male, with recurrent pleomorphic adenoma. He had 9 previous surgeries and also had XRT in the past, which did not work. He was admitted and underwent open biopsy of the left facial tumor and radiofrequency ablation of the left neck tumor. He tolerated procedure well. It was a vascular tumor and was bleeding. Pressure dressing was placed. Decision was made to keep the patient overnight, to keep him in the hospital to evaluate to see if there was any significant bleeding. The following day, he had insignificant bleeding. Dressing was dry. Drain was removed. Band-Aid was placed over. He was cleared for discharge home to follow -up as outpatient the next day. POSTOPERATIVE DIAGNOSIS: The patient is with recurrent pleomorphic adenoma. He has had 9 previous surgeries. This surgery is only for biopsy and a trial of radiofrequency wave for ablation of a node in the left face. PROCEDURES: 1. Open biopsy of the left facial tumor. 2. Radiofrequency ablation of the left neck tumor. DISPOSITION: Patient was discharged home. DISCHARGE MEDICATIONS: Refer to Discharge Medication List. DISCHARGE INSTRUCTIONS: Follow-up the next day. I have been assigned to complete a discharge summary on this account, I was not involved with the patient's management. Raissa Bettencourt NP September 21, 2018 09:56
--- NOTE | 2018-09-21 13:15 | NUR ---
*-* INSURANCE *-* DISCHARGE SUMMARY HAVE BEEN FAXED TO: [facility] P- [phone] F- [phone]...REVIEW/CLINICAL
== END 2018-09-20 14:59 | disposition home or self-care (01) | DRG 139 ==
LOC: SUR 07:22 → OBSVTOIN 11:03 → 3E 11:03
PROC: 0C5 Mouth and Throat, Destruction (ICD-10-PCS; principal; 2018-09-20)
PROC: 0CBJ0ZX Excision of Minor Salivary Gland, Open Approach, Diagnostic (ICD-10-PCS; principal; 2018-09-20)
DX: D11.0 Benign neoplasm of parotid gland (principal); I50.22 Chronic systolic (congestive) heart failure; I42.9 Cardiomyopathy, unspecified; I11.0 Hypertensive heart disease with heart failure
CPT/HCPCS: 36415; 80053; 80061; 84443; 85025; 93970; 94003; 94150